=== PATIENT | female | born 1985 | race Caucasian/White ===

== ENCOUNTER 2016-07-18 19:57 | Observation (INO) | payer MEDICAID, OTHER ==
[~2016-07-18] VITALS: Ht 162.6 cm; Wt 77.0 kg
[~2016-07-18 19:57] MED LIST: IBUP800 PO; PERC5TAB12 PO; PNV-TAB PO; PREN0.01 PO; SENN1TAB11 PO
[2016-07-18 19:59] VITALS: BP 149/75; PULSE 108; RESP 20; TEMP 97.9; O2SAT 98
[2016-07-18] MEDS ORDERED: WELLTAB39 PO (20:26)
[2016-07-18] MEDS ORDERED: DIAZ5TAB PO (20:26)
[2016-07-18] MEDS ORDERED: SODIUM CHLOR 0.9% 1000 ML INJ 1,000 ML IV ONE (20:37)
[2016-07-18] MEDS ORDERED: SODIUM CHLORIDE 0.9% FLUSH 5 ML FLUSH IVF PRN (20:45)
[2016-07-18] MEDS ORDERED: LORazepam 2 MG/ML VIAL IV PUSH ONE (21:00)
[2016-07-18 21:11] LABS: AUTOMATED NEUTROPHIL # 5.8 TH/MM3 (1.8-7.7); BASOPHIL # 0.1 TH/MM3 (0-0.2); BASOPHIL % 0.7 % (0.0-2.0); EOSINOPHIL # 0.3 TH/MM3 (0-0.4); EOSINOPHIL % 3.3 % (0.0-4.0); HEMATOCRIT 40.7 % (35.0-46.0); HEMO FLAGS DIFF FINAL; LYMPH % 29.2 % (9.0-44.0); LYMPHOCYTE # 2.8 TH/MM3 (1.0-4.8); MEAN CELL VOLUME 83.1 FL (80.0-100.0); MEAN CORPUSCULAR HEMOGLOBIN 27.5 PG (27.0-34.0); MEAN CORPUSCULAR HGB CONC 33.1 % (32.0-36.0); NEUT % 60.8 % (16.0-70.0); PLATELET COUNT 248 TH/MM3 (150-450); RED BLOOD COUNT 4.89 MIL/MM3 (4.00-5.30); RED CELL DISTRIBUTION WIDTH 13.9 % (11.6-17.2); WHITE BLOOD COUNT 9.5 TH/MM3 (4.0-11.0)
--- NOTE | 2016-07-18 21:37 | RADRPT ---
EXAM DATE/TIME: 07/18/2016 21:21 [facility] COMPARISON: No previous studies available for comparison. INDICATIONS : Altered mental status. Possible seizure. RADIATION DOSE: 56.35 CTDIvol (mGy) MEDICAL HISTORY : Hypertension. SURGICAL HISTORY : Appendectomy. Tubal ligation. ENCOUNTER: Initial ACUITY: 1 day PAIN SCALE: 0/10 LOCATION: cranial TECHNIQUE: Multiple contiguous axial images were obtained of the head. Using automated exposure control and adj ustment of the mA and/or kV according to patient size, radiation dose was kept as low as reasonably a chievable to obtain optimal diagnostic quality images. FINDINGS: CEREBRUM: The ventricles are normal for age. No evidence of midline shift, mass lesion, hemorrhage or acute in farction. No extra-axial fluid collections are seen. POSTERIOR FOSSA: The cerebellum and brainstem are intact. The 4th ventricle is midline. The cerebellopontine angle i s unremarkable. EXTRACRANIAL: The visualized portion of the orbits is intact. SKULL: The calvaria is intact. No evidence of skull fracture. CONCLUSION: Normal examination. Leoncio Ramos MD on July 18, 2016 at 21:33 Board Certified Radiologist. This report was verified electronically.
[2016-07-18 21:49] VITALS: BP 142/68; PULSE 91; RESP 18; O2SAT 98
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
[2016-07-18 22:17] LABS: PHENOBARBITAL LESS THAN 2.1 MCG/ML (15.0-40.0)
[2016-07-18 22:27] LABS: ANION GAP 8 MEQ/L (5-15); BICARBONATE 26.3 MEQ/L (21.0-32.0); BLOOD UREA NITROGEN 8 MG/DL (7-18); CHLORIDE 109 MEQ/L (98-107); GLOMERULAR FILTRATION RATE 73 ML/MIN (>89); POTASSIUM 4.1 MEQ/L (3.5-5.1); SODIUM (NA) 143 MEQ/L (136-145)
[2016-07-18 22:32] LABS: AMPHETAMINE, URINE NEG (NEG); BARBITURATES, URINE NEG (NEG); COCAINE, URINE NEG (NEG)
[2016-07-18] MEDS ORDERED: FOSPHENYTOIN SODIUM 500 MG PE/10 ML VIAL IV ONE (23:00)
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
[2016-07-18] MEDS ORDERED: LORazepam 2 MG/ML VIAL IV PUSH PRN (23:15)
[2016-07-18] MEDS ORDERED: ONDANSETRON HCL 4 MG/2 ML VIAL IVP PRN (23:15)
[2016-07-18] MEDS ORDERED: SODIUM CHLORIDE 0.9% FLUSH 5 ML FLUSH FLUSH PRN (23:15)
[2016-07-18] MEDS ORDERED: BISACODYL 10 MG SUPP PR PRN (23:15)
[2016-07-18] MEDS: SODIUM CHLOR 0.9% 1000 ML INJ 1,000 ML IV SCH (23:41)
[2016-07-19 00:47] VITALS: BP 128/67; PULSE 87; RESP 19; TEMP 98.1; O2SAT 98
[2016-07-19] MEDS ORDERED: DIAZEPAM 5 MG TAB PO PRN (02:00)
[2016-07-19 03:16] VITALS: BP 110/54; PULSE 85; RESP 19; TEMP 98.2; O2SAT 97
[2016-07-19 04:43] LABS: AUTOMATED NEUTROPHIL # 4.8 TH/MM3 (1.8-7.7); BASOPHIL % 0.5 % (0.0-2.0); EOSINOPHIL # 0.3 TH/MM3 (0-0.4); EOSINOPHIL % 3.4 % (0.0-4.0); HEMATOCRIT 36.4 % (35.0-46.0); HEMO FLAGS DIFF FINAL; LYMPH % 30.9 % (9.0-44.0); LYMPHOCYTE # 2.5 TH/MM3 (1.0-4.8); MEAN CELL VOLUME 83.3 FL (80.0-100.0); MEAN CORPUSCULAR HEMOGLOBIN 27.7 PG (27.0-34.0); MEAN CORPUSCULAR HGB CONC 33.2 % (32.0-36.0); MONO % 6.1 % (0.0-8.0); NEUT % 59.1 % (16.0-70.0); PLATELET COUNT 188 TH/MM3 (150-450); RED BLOOD COUNT 4.37 MIL/MM3 (4.00-5.30); RED CELL DISTRIBUTION WIDTH 13.5 % (11.6-17.2); WHITE BLOOD COUNT 8.2 TH/MM3 (4.0-11.0)
[2016-07-19 05:36] LABS: ALT (GPT) 15 U/L (10-53); ANION GAP 7 MEQ/L (5-15); AST (GOT) 7 U/L (15-37); BICARBONATE 24.6 MEQ/L (21.0-32.0); BLOOD UREA NITROGEN 7 MG/DL (7-18); CHLORIDE 113 MEQ/L (98-107); GLOMERULAR FILTRATION RATE 80 ML/MIN (>89); POTASSIUM 4.3 MEQ/L (3.5-5.1); SODIUM (NA) 145 MEQ/L (136-145)
[2016-07-19 05:39] LABS: ALKALINE PHOSPHATASE 64 U/L (45-117); TOTAL BILIRUBIN ADULT 0.2 MG/DL (0.2-1.0)
[2016-07-19 07:18] VITALS: BP 123/69; PULSE 75; RESP 16; TEMP 98.4; O2SAT 98
[2016-07-19] MEDS: SODIUM CHLOR 0.9% 1000 ML INJ 1,000 ML IV SCH (08:58)
[2016-07-19] MEDS: ACETAMINOPHEN 325 MG TAB PO PRN ×2 (08:58→20:42)
[2016-07-19] MEDS: SODIUM CHLORIDE 0.9% FLUSH 5 ML FLUSH FLUSH SCH ×2 (08:59→20:43)
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
[2016-07-19 11:20] VITALS: BP 113/67; PULSE 88; RESP 17; TEMP 98.2; O2SAT 98
--- NOTE | 2016-07-19 11:36 | RADRPT ---
EXAM DATE/TIME: 07/19/2016 11:08 [facility] COMPARISON: CT BRAIN W/O CONTRAST, July 18, 2016, 21:21. INDICATIONS : Seizures. MEDICAL HISTORY : Seizures. SURGICAL HISTORY : Appendectomy. Tubal ligation. ENCOUNTER: Initial ACUITY: 1 day PAIN SCORE: 5/10 LOCATION: cranial TECHNIQUE: Multiplanar, multisequence MRI of the brain was performed without contrast. FINDINGS: CEREBRUM: The ventricles are normal. Hippocampi are symmetric. No evidence of midline shift, mass lesion, hemo rrhage or acute infarction. No extraaxial fluid collections are seen. The pituitary gland and supra sellar cistern are normal in configuration. WHITE MATTER: No significant signal abnormalities are seen in the white matter. POSTERIOR FOSSA: The cerebellum and brainstem are intact. The 4th ventricle is midline. The cerebellopontine angle is unremarkable. The cerebellar tonsils are normal in position. DIFFUSION IMAGING: No focal areas of restricted diffusion are seen. No evidence of acute infarction. EXTRACRANIAL: The visualized portions of the orbits and paranasal sinuses are unremarkable. CONCLUSION: Negative brain MRI without contrast. No abnormality is identified to explain the patient's seizures. Adolph Johnson MD on July 19, 2016 at 11:32 Board Certified Radiologist. This report was verified electronically.
[2016-07-19] MEDS: PHENYTOIN SODIUM 100 MG CAP PO SCH ×2 (12:49→20:41)
[2016-07-19] MEDS: levETIRAcetam 500 MG TAB PO SCH ×2 (12:49→20:41)
--- NOTE | 2016-07-19 13:07 | MG ---
cc: JANET MCKEON M.D. Lab No: [id number] Date: 07/19/2016 Age: Sex: F Race: TECHNIQUE: 17 channel EEG. DESCRIPTION: The background rhythm reveals a symmetrical alpha rhythm. Frequency is 8-9 Hz. There is fairly prominent beta activity related to most likely medication effect. Occasional muscle artifact is seen. There are no lateralizing features seen. There are no epileptiform discharges. Photic results in a normal driving response. INTERPRETATION: This is a normal EEG. MD PINEDA Otero/JOSE /12:46 PM /1:03 PM
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
[2016-07-19 15:53] VITALS: BP 120/64; PULSE 81; RESP 16; TEMP 98.1; O2SAT 98
[2016-07-19 21:21] VITALS: BP 128/75; PULSE 81; O2SAT 98
[2016-07-20 00:29] VITALS: BP 120/72; PULSE 76; O2SAT 96
[2016-07-20 04:51] VITALS: BP 121/65; PULSE 87; O2SAT 96
[2016-07-20] MEDS: PHENYTOIN SODIUM 100 MG CAP PO SCH ×2 (06:21→15:31)
[2016-07-20 09:06] VITALS: BP 120/77; PULSE 72; RESP 17; TEMP 98.6; O2SAT 99
[2016-07-20] MEDS: levETIRAcetam 500 MG TAB PO SCH (10:20)
[2016-07-20] MEDS: SODIUM CHLORIDE 0.9% FLUSH 5 ML FLUSH FLUSH SCH (10:21)
[2016-07-20] MEDS ORDERED: FOSPHENYTOIN SODIUM 100 MG PE/2 ML VIAL IV ONE (12:00)
[2016-07-20] MEDS ORDERED: DILA100C PO (12:03)
[2016-07-20] MEDS ORDERED: LEVE500 PO (12:03)
[2016-07-20 12:05] VITALS: BP 133/77; PULSE 78; RESP 18; TEMP 98.5; O2SAT 96
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
[2016-07-20 16:15] VITALS: BP 152/76; PULSE 71; RESP 18; O2SAT 96
== END 2016-07-20 16:41 | disposition home or self-care (01) ==
LOC: NEPE 19:57 → NEDA 22:57 → NEPGCP 07-19 → NEPHCDU 07-19 07:51
PROVIDERS: ADMIT Hospitalist; ATTEND Hospitalist
DX: G40.909 Epilepsy, unspecified, not intractable, without status epilepticus (principal); F43.10 Post-traumatic stress disorder, unspecified; R01.1 Cardiac murmur, unspecified; F17.210 Nicotine dependence, cigarettes, uncomplicated; Z91.14 Patient's other noncompliance with medication regimen; Z87.828 Personal history of other (healed) physical injury and trauma
CPT/HCPCS: 70450; 70551; 80048; 80053; 80164; 80184; 80185; 80186; 80307; 84703; 85025; 95819; 96361; 96374; 97110; 97116; 97161; 99285; G0378; J2060; J7030; Q2009; 80320

== ENCOUNTER 2016-07-25 16:07 | Inpatient (IN) | payer MEDICAID ==
[~2016-07-25] VITALS: Ht 165.1 cm; Wt 85.6 kg
[~2016-07-25 16:07] MED LIST changes: +DIAZ5TAB PO; +DILA100C PO; -IBUP800 PO; +LEVE500 PO; -PERC5TAB12 PO; -PNV-TAB PO; -PREN0.01 PO; -SENN1TAB11 PO
[2016-07-25 16:10] VITALS: BP 191/92; PULSE 114; RESP 20; TEMP 98.1; O2SAT 100
[2016-07-25] MEDS ORDERED: LORazepam 2 MG/ML VIAL IM ONE (16:30)
[2016-07-25] MEDS ORDERED: CLON.5 PO (16:31)
--- NOTE | 2016-07-25 16:37 | PD ---
HPI Chief Complaint: Seizure Time Seen by Provider: 16:37 Travel History International Travel<30 days: No Contact w/Intl Traveler<30days: No Traveled to known affect area: No History of Present Illness HPI 30-year-old female is here with her friend with history of seizures. Patient had a seizure on her way from the triage to the room. However currently she is awake and answering questions although sleepy and with little bit of slurred speech. She says she has had these seizures multiple times. She has been to [facility] as well as [facility]. She had an EEG done in this hospital which was negative. She is on Dilantin, Keppra, Klonopin and diazepam. She says she's been taking them like she supposed to. However she doesn't understand why she keeps getting seizures. Vital signs were stable otherwise in the room. Patient was tachycardic and hypertensive when she first arrived. Patient is a smoker but denies alcohol or drugs. [facility] Past Medical History Narrative Medical List of her past medical, surgical, family and social history is reviewed from the nursing note. Hx Anticoagulant Therapy: No Blood Disorders: No Anxiety: Yes (PTSD - DOMESTIC ABUSE) Heart Rhythm Problems: Yes Cancer: No Cardiovascular Problems: No High Cholesterol: No Chemotherapy: No Chest Pain: Yes Congestive Heart Failure: No Cerebrovascular Accident: No Diabetes: No Diminished Hearing: No Endocrine: No Genitourinary: No Hypertension: Yes (GESTATIONAL) Neurologic: Yes (seizures) Psychiatric: Yes Reproductive: No Respiratory: No Tetanus Vaccination: < 5 Years ?: Not LMP: 07/19/16 : 12 Para: 4 Miscarriage: 8 Dilation and Curettage (D&C): Yes (1) Tubal Ligation: Yes Past Surgical History Appendectomy: Yes Hysterectomy: No Other Surgery: Yes (appendix, tubal ligation) Social History Alcohol Use: No Tobacco Use: Yes (1/2PPD) Substance Use: No Allergies-Medications (Allergen,Severity, Reaction): Coded Allergies: Bactrim (Verified Allergy, Intermediate, hives, 07/25/16) Comments List of allergies reviewed from the nursing note. Reported Meds & Prescriptions Reported Meds & Active Scripts Active Dilantin (Phenytoin Extended) 100 Mg Cap 100 Mg PO Q8HR Keppra (Levetiracetam) 500 Mg Tab 500 Mg PO Q12HR Reported Klonopin (Clonazepam) 0.5 Mg Tab 0.5 Mg PO BID Diazepam 5 Mg Tab 5 Mg PO TID PRN Narrative Medication List of her home medications reviewed from the nursing note. Review of Systems Except as stated in HPI: all other systems reviewed are Neg Physical Exam Narrative GENERAL: Lethargic, slurred speech, obese, no obvious distress SKIN: Warm and dry. HEAD: Atraumatic. Normocephalic. EYES: Pupils equal and round. No scleral icterus. No injection or drainage. ENT: No nasal bleeding or discharge. Mucous membranes pink and moist. NECK: Trachea midline. No JVD. CARDIOVASCULAR: Regular rate and rhythm. No murmur appreciated. RESPIRATORY: No accessory muscle use. Clear to auscultation. Breath sounds equal bilaterally. GASTROINTESTINAL: Abdomen soft, non-tender, nondistended. Hepatic and splenic margins not palpable. MUSCULOSKELETAL: No obvious deformities. No clubbing. No cyanosis. No edema. NEUROLOGICAL: Lethargic. No obvious cranial nerve deficits. Motor grossly within normal limits. Slurred speech. PSYCHIATRIC: Appropriate mood and affect; insight and judgment normal. Data Data Last Documented VS Vital Signs Date Time Temp Pulse Resp B/P Pulse Ox O2 Delivery O2 Flow Rate FiO2 07/25/16 16:10 98.1 114 20 191/92 100 Room Air Orders Lorazepam Inj (Ativan Inj) (07/25/16 16:30) Complete Blood Count With Diff (07/25/16 17:40) Basic Metabolic Panel (Bmp) (07/25/16 17:40) Magnesium (Mg) (07/25/16 17:40) Sodium Chlor 0.9% 1000 Ml Inj (Ns 1000 M (07/25/16 17:45) Creatine Kinase (Cpk) (07/25/16 17:40) Phenytoin (Dilantin) (07/25/16 17:50) Acetaminophen (Tylenol) (07/25/16 18:15) Admit Order (Ed Use Only) (07/25/16 19:46) Phenytoin Inj (Dilantin Inj) (07/25/16 20:00) Labs Laboratory Tests Test 07/25/16 17:50 White Blood Count 13.9 TH/MM3 Red Blood Count 5.13 MIL/MM3 Hemoglobin 14.1 GM/DL Hematocrit 42.7 % Mean Corpuscular Volume 83.2 FL Mean Corpuscular Hemoglobin 27.4 PG Mean Corpuscular Hemoglobin 33.0 % Concent Red Cell Distribution Width 13.8 % Platelet Count 326 TH/MM3 Mean Platelet Volume 9.3 FL Neutrophils (%) (Auto) 57.4 % Lymphocytes (%) (Auto) 34.0 % Monocytes (%) (Auto) 5.3 % Eosinophils (%) (Auto) 2.8 % Basophils (%) (Auto) 0.5 % Neutrophils # (Auto) 8.0 TH/MM3 Lymphocytes # (Auto) 4.7 TH/MM3 Monocytes # (Auto) 0.7 TH/MM3 Eosinophils # (Auto) 0.4 TH/MM3 Basophils # (Auto) 0.1 TH/MM3 CBC Comment DIFF FINAL Differential Comment Sodium Level 140 MEQ/L Potassium Level 3.4 MEQ/L Chloride Level 103 MEQ/L Carbon Dioxide Level 25.8 MEQ/L Anion Gap 11 MEQ/L Blood Urea Nitrogen 8 MG/DL Creatinine 0.92 MG/DL Estimat Glomerular Filtration 72 ML/MIN Rate Random Glucose 95 MG/DL Calcium Level 8.7 MG/DL Magnesium Level 2.1 MG/DL Total Creatine Kinase 134 U/L Phenytoin (Dilantin) Level 4.0 MCG/ML MDM Medical Decision Making Medical Screen Exam Complete: Yes Emergency Medical Condition: Yes Medical Record Reviewed: Yes Differential Diagnosis Seizures, electrolyte abnormality Narrative Course 7:30 PM blood test results are back and within normal limits. However, preferred to keep this patient at least for observation and repeat another EEG. I've explained this to the patient and she is happy with the plan. Her Dilantin level was low and I have loaded her with a gram of Dilantin IV. I spoke with the hospitalist who has accepted the patient. Procedures EKG Prior to Arrival: No Diagnosis Primary Impression: Seizure Admitting Information Admitting Physician Requests: Observation Scripts Phenytoin Extended (Dilantin)100 Mg Azo456 Mg PO Q12HR #60 CAP Prov:Betty Valencia MD 07/28/16 Levetiracetam (Keppra)500 Mg Tab1,000 Mg PO Q12HR #60 TAB Prov:Betty Valencia MD 07/28/16 Rudi Arvizu MD Jul 25, 2016 16:37
[2016-07-25] MEDS ORDERED: SODIUM CHLOR 0.9% 1000 ML INJ 1,000 ML IV ONE (17:45)
[2016-07-25 18:13] LABS: BASOPHIL # 0.1 TH/MM3 (0-0.2); BASOPHIL % 0.5 % (0.0-2.0); EOSINOPHIL # 0.4 TH/MM3 (0-0.4); EOSINOPHIL % 2.8 % (0.0-4.0); HEMATOCRIT 42.7 % (35.0-46.0); HEMO FLAGS DIFF FINAL; LYMPHOCYTE # 4.7 TH/MM3 (1.0-4.8); MEAN CELL VOLUME 83.2 FL (80.0-100.0); MEAN CORPUSCULAR HEMOGLOBIN 27.4 PG (27.0-34.0); MONO % 5.3 % (0.0-8.0); NEUT % 57.4 % (16.0-70.0); PLATELET COUNT 326 TH/MM3 (150-450); RED BLOOD COUNT 5.13 MIL/MM3 (4.00-5.30); RED CELL DISTRIBUTION WIDTH 13.8 % (11.6-17.2); WHITE BLOOD COUNT 13.9 TH/MM3 (4.0-11.0)
[2016-07-25] MEDS ORDERED: ACETAMINOPHEN 325 MG TAB PO ONE (18:15)
[2016-07-25 19:02] LABS: BICARBONATE 25.8 MEQ/L (21.0-32.0); MAGNESIUM 2.1 MG/DL (1.5-2.5)
[2016-07-25 19:07] LABS: POTASSIUM 3.4 MEQ/L (3.5-5.1)
[2016-07-25 19:50] VITALS: BP 107/59; PULSE 87; RESP 18; TEMP 98.3; O2SAT 100
[2016-07-25] MEDS ORDERED: DIAZEPAM 5 MG TAB PO PRN (20:00)
[2016-07-25] MEDS ORDERED: PHENYTOIN INJ 1,000 MG in SODIUM CHLORIDE 0.9% INJ 100 ML IV ONE (20:00)
[2016-07-25] MEDS ORDERED: ONDANSETRON HCL 4 MG/2 ML VIAL IVP PRN (20:00)
[2016-07-25] MEDS ORDERED: levETIRAcetam 1000 MG INJ 100 ML IV ONE (20:00)
[2016-07-25] MEDS ORDERED: BISACODYL 10 MG SUPP PR PRN (20:00)
[2016-07-25] MEDS ORDERED: SODIUM CHLORIDE 0.9% FLUSH 5 ML FLUSH FLUSH PRN (20:00)
[2016-07-25] MEDS ORDERED: ACETAMINOPHEN 325 MG TAB PO PRN (20:00)
--- NOTE | 2016-07-25 20:00 | HHI.HP ---
[facility] Service [facility] Primary Care Physician Unknown Admission Diagnosis seizure Diagnoses: (1) Seizure Diagnosis: Principal (2) Non-compliance Diagnosis: Principal (3) Anxiety Diagnosis: Principal (4) Tobacco abuse Diagnosis: Principal Travel History International Travel<30 Days: No Contact w/Intl Traveler <30 Da: No Traveled to Known Affected Are: No History of Present Illness This is a 30-year-old female with a PMH of Anxiety, PTSD, Seizure Disorder, Non- compliance and Tobacco Abuse who was brought to the ER by sister secondary to witnessed seizure w/ post-ictal period. 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 Oro w/ Neurology, resumed on Dilantin 100mg po q8h and Keppra 500mg q12h, EEG 07/19/[address] Head 07/18/16 negative and MRI Brain 07/19/16 normal. D/c'd 07/20/16, reportedly compliant w/ medications, however Dilantin level subtherapeutic at 4.0. No recurrent seizure activity while in ER, however pt noted to be somnolent w/ slurred speech indicative of post-ictal state. On arrival, BP 191/ 92, HR 114, O2 sat 100% on RA, Afebrile. Currently BP 107/59, HR 87. WBC 13.9. K+ 3.4. S/p Dilantin 1gm IV x1 in ER. Review of Systems ROS: 14 point review of systems otherwise negative. Past Family Social History Past Medical History PMH: Anxiety, PTSD, Seizure Disorder, Non-compliance and Tobacco Abuse Past Surgical History PAST SURGICAL HISTORY: Appendectomy, Tubal Ligation Allergies: Coded Allergies: Bactrim (Verified Allergy, Intermediate, hives, 07/25/16) Family History PAST FAMILY HISTORY: Reviewed. No h/o DM or CAD Social History PAST SOCIAL HISTORY: Negative for alcohol or drug use. Smokes 1/2ppd. Physical Exam Vital Signs Vital Signs Date Time Temp Pulse Resp B/P Pulse Ox O2 Delivery O2 Flow Rate FiO2 07/25/16 19:50 98.3 87 18 107/59 100 Room Air 07/25/16 16:10 98.1 114 20 191/92 100 Room Air Physical Exam PE: GENERAL: Young black female in no acute distress, somewhat somnolent but answering few questions. HEENT: PERRLA, EOMI. No scleral icterus or conjunctival pallor. No lid lag or facial droop. CARDIOVASCULAR: Regular rate and rhythm. No obvious murmurs to auscultation. No chest tenderness to palpation. RESPIRATORY: No obvious rhonchi or wheezing. Clear to auscultation. Breath sounds equal bilaterally. GASTROINTESTINAL: Abdomen soft, non-tender, nondistended. BS normal. MUSCULOSKELETAL: Extremities without clubbing, cyanosis, or edema. No obvious deformities. NEUROLOGICAL: Somnolent but answers questions. No focal neurologic deficits. Moving both upper and lower extremities spontaneously. Laboratory Laboratory Tests Test 07/25/16 17:50 White Blood Count 13.9 Red Blood Count 5.13 Hemoglobin 14.1 Hematocrit 42.7 Mean Corpuscular Volume 83.2 Mean Corpuscular Hemoglobin 27.4 Mean Corpuscular Hemoglobin 33.0 Concent Red Cell Distribution Width 13.8 Platelet Count 326 Mean Platelet Volume 9.3 Neutrophils (%) (Auto) 57.4 Lymphocytes (%) (Auto) 34.0 Monocytes (%) (Auto) 5.3 Eosinophils (%) (Auto) 2.8 Basophils (%) (Auto) 0.5 Neutrophils # (Auto) 8.0 Lymphocytes # (Auto) 4.7 Monocytes # (Auto) 0.7 Eosinophils # (Auto) 0.4 Basophils # (Auto) 0.1 CBC Comment DIFF FINAL Differential Comment Sodium Level 140 Potassium Level 3.4 Chloride Level 103 Carbon Dioxide Level 25.8 Anion Gap 11 Blood Urea Nitrogen 8 Creatinine 0.92 Estimat Glomerular Filtration 72 Rate Random Glucose 95 Calcium Level 8.7 Magnesium Level 2.1 Total Creatine Kinase 134 Phenytoin (Dilantin) Level 4.0 Result Diagram: 07/25/16174907/25/161749 Assessment and Plan Problem List: (1) Seizure ICD Code: R56.9 Status: Acute (2) Non-compliance ICD Code: Z91.19 Status: Chronic (3) Anxiety ICD Code: F41.9 Status: Chronic (4) Tobacco abuse ICD Code: Z72.0 Status: Chronic Assessment and Plan A/P: 1. Seizure: w/ breakthrough seizure, suspect non-compliance w/ medications. Recent admit 07/18/16 for same, s/p eval by Dr. Oro, resumed on Dilantin 100mg q8h and added Keppra 500mg q12h. EEG 07/19/[address] Head 07/18/16 w/ no acute findings, MRI Brain 07/19/16 negative, images reviewed by me. Dilantin level subtherapeutic, s/p Dilantin 1gm IV in ER, will resume home Dilantin and Keppra, repeat levels in am. Ativan prn, Seizure Precautions. Will re-consult Dr. Oro for further recommendations. 2. Non-compliance: h/o non-compliance w/ Dilantin in the past due to financial reasons, reports compliance w/ meds, however as above Dilantin subtherapeutic. 3. Anxiety: h/o severe anxiety/PTSD currently living in [facility]. Resume home Klonopin/Valium 4. Tobacco Abuse: Pt counselled. NicoDerm prn if needed. 5. DVT Prophylaxis: SCD/Teds. 6. Social work for d/c planning as needed. 7. Case discussed w/ ER physician at length. Sheron Miranda MD Jul 25, 2016 20:00
[2016-07-25] MEDS: SODIUM CHLOR 0.9% 1000 ML INJ 1,000 ML IV SCH (21:22)
[2016-07-25] MEDS: SODIUM CHLORIDE 0.9% FLUSH 5 ML FLUSH FLUSH SCH (21:22)
[2016-07-25] MEDS: clonazePAM 0.5 MG TAB PO SCH (21:22)
[2016-07-25 21:23] VITALS: BP 107/59; PULSE 98; RESP 18; O2SAT 100
[2016-07-25 21:37] VITALS: BP 123/74
[2016-07-25] MEDS: LORazepam 2 MG/ML VIAL IV PUSH PRN ×2 (22:12→22:35)
--- NOTE | 2016-07-25 22:46 | HHI.FPPN ---
Addendum to progress note ADDENDUM Reason for addendum: Additonal documentation Additional information PRATIMA Residents paged for pratima regarding patient with seizure-like activity. Pt admitted for seizures and then became non-responsive and had oxygen desaturation. They had given patient 1mg IV ativan. Upon entering the room, pt was laying in bed, not answering questions. Sternal rub produced minimal movement. While in the room, pt exhibited another seizure episode, which the nurse stated was similar to earlier. Pt constricted arms and began shaking and coughing. Patient's head was turned to one side and another 1mg IV ativan was given. Pt's seizure activity resolved after the ativan was given. Vitals: BP stable, HR 80s, adequate oxygen saturation Gen: Lying in bed, not responding to questions CV: RRR w/o murmur Lungs: CTAB GI: soft, nttp Ext: pulses intact, no edema A/P 30 y/o female with history of seizures presenting with breakthrough seizures. - Given 1mg IV ativan - Continue Keppra and Dilantin - If uncontrolled seizures, call neuro - Neurology has been consulted - Covering physician for pt was called and case was discussed with her and she took over care sdw Dr. Holt-Margarito Krueger MD R1 Jul 25, 2016 22:46
--- NOTE | 2016-07-25 23:15 | HHI.PR ---
Addendum to Inpatient Note Addendum Reason: Additional Documentation Additional Information Ms. Turner is a 30 y/o with about a one-year history of seizures and medical noncompliance who was brought into the emergency department by her sister after a witnessed seizure at home. 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 Oro w/ Neurology, resumed on Dilantin 100mg po q8h and Keppra 500mg q12h, EEG 07/19/[address] Head 07/18/16 negative and MRI Brain 07/19/16 normal. D/c'd 07/20/16, reportedly compliant w/ medications, however Dilantin level subtherapeutic at 4.0. [facility]ICAT was called while the patient was in the CDU because of seizure activity : I received report from the residents who attended the [facility], the charge nurse, and the bedside registered nurse. Reportedly, during the seizure all of her muscles were tight and she was shaking. She was unresponsive to sternal rub , hypoxic with oxygen saturation in the low 80's, and was administered Ativan 1 mg IV. The seizure resolved and she went into a postictal state with stabilization of vitals and oxygen sat of 95% on 4liters oxygen NC. Shortly afterward, she had further seizure-like activity as described above. This episode also resolved with Ativan 1 mg IV. No incontinence during either episode. Did not bite tongue or cheek. I saw the patient in the CDU afterwards. Vital signs were stable and her oxygen saturation was 95-96% on 4 L nasal cannula. Neurological examination reveals some mild photosensitivity with penlight exam. Pupils are equal but dilated, responsive to light. Muscle strength is generally weak 5-/5 but equal. No tongue deviation noted, no oral lesions noted. Speech is slightly slurred. She tells me it is July 2016, [place] is president. Cannot tell me the exact date or day. She becomes more alert and talkative throughout the duration of my visit. She tells me Latasha is president before the visit is over. The patient has received both Dilantin and Keppra loading doses. She tells me she felt her normal aura prior to seizure activity and said she could hear muffled sounds that were quite loud. She says she remembers the nurse asking her something and then the next thing she remembers is talking to me. She also tells me she feels like her aura is returning before I leave the room. I placed a call to Dr. Celis the neurologists and discussed the above with him: he recommends admission to ICU; in regards to seizure management, he recommended to continue to give Ativan PRN for seizure activity since she'd already been loaded with Dilantin and Keppra. He wants her to be admitted to ICU in the event that continued Ativan administration leads to an inability to protect airway or suppressed respirations/hypoxia. Also discussed the above with supervising physician Dr. Miranda. She is in agreement with plan. . Montserrat Arriaga Jul 25, 2016 23:15
[2016-07-26] VITALS (10 sets, daily range): BP systolic 94–141; BP diastolic 52–88; PULSE 73–98; RESP 16–20; TEMP 97.6–98.2; O2SAT 94–99
[2016-07-26] MEDS ORDERED: CHLORHEXIDINE GLUCONATE 2 % 1 PACK (2 CLOTHS)(extra cloths) TOP PRN (01:45)
[2016-07-26 03:46] LABS: AUTOMATED NEUTROPHIL # 4.9 TH/MM3 (1.8-7.7); BASOPHIL # 0.1 TH/MM3 (0-0.2); BASOPHIL % 0.6 % (0.0-2.0); EOSINOPHIL # 0.3 TH/MM3 (0-0.4); EOSINOPHIL % 3.2 % (0.0-4.0); HEMATOCRIT 35.9 % (35.0-46.0); HEMO FLAGS DIFF FINAL; LYMPH % 35.2 % (9.0-44.0); LYMPHOCYTE # 3.1 TH/MM3 (1.0-4.8); MEAN CELL VOLUME 82.7 FL (80.0-100.0); MEAN CORPUSCULAR HEMOGLOBIN 27.5 PG (27.0-34.0); MEAN CORPUSCULAR HGB CONC 33.2 % (32.0-36.0); PLATELET COUNT 230 TH/MM3 (150-450); RED BLOOD COUNT 4.33 MIL/MM3 (4.00-5.30); RED CELL DISTRIBUTION WIDTH 13.2 % (11.6-17.2); WHITE BLOOD COUNT 8.7 TH/MM3 (4.0-11.0)
[2016-07-26] MEDS: CHLORHEXIDINE GLUCONATE 2 % 1 PACK (2 CLOTHS)(taper/protocol) TOP SCH (04:00)
[2016-07-26 04:03] LABS: ANION GAP 7 MEQ/L (5-15); AST (GOT) 8 U/L (15-37); BICARBONATE 25.5 MEQ/L (21.0-32.0); BLOOD UREA NITROGEN 7 MG/DL (7-18); CHLORIDE 110 MEQ/L (98-107); GLOMERULAR FILTRATION RATE 107 ML/MIN (>89); POTASSIUM 3.7 MEQ/L (3.5-5.1); SODIUM (NA) 142 MEQ/L (136-145)
[2016-07-26 04:11] LABS: ALKALINE PHOSPHATASE 72 U/L (45-117); ALT (GPT) 14 U/L (10-53); TOTAL BILIRUBIN ADULT 0.2 MG/DL (0.2-1.0)
[2016-07-26] MEDS: SODIUM CHLOR 0.9% 1000 ML INJ 1,000 ML IV SCH ×2 (05:46→08:48)
[2016-07-26] MEDS ORDERED: PHENYTOIN SODIUM 100 MG CAP PO SCH (06:00)
[2016-07-26] MEDS: clonazePAM 0.5 MG TAB PO SCH ×2 (08:48→20:57)
[2016-07-26] MEDS: SODIUM CHLORIDE 0.9% FLUSH 5 ML FLUSH FLUSH SCH ×2 (08:48→20:58)
[2016-07-26] MEDS ORDERED: levETIRAcetam 500 MG TAB PO SCH (09:00)
--- NOTE | 2016-07-26 09:23 | HHI.PR ---
Subjective Remarks Patient complaints of shoulder pain in her left shoulder. She is also having an episode of seizure, she is nor talking and al her muscle are tense, he keeps her eyes closed and she is nor answering questions. She is is however able to take PO , did not lose bowel /bladder control. Vitals signs are stable. Labs are stable. Received lorazepam and is sleepy. Discussed with Dr Celis neurology, will repeat EEG and also will order X ray left shoulder. Objective Vitals Vital Signs Date Time Temp Pulse Resp B/P Pulse Ox O2 Delivery O2 Flow Rate FiO2 07/26/16 06:00 75 07/26/16 04:00 76 07/26/16 04:00 98.2 75 16 94/52 98 07/26/16 02:00 83 07/26/16 00:36 90 07/26/16 00:09 97.8 98 18 124/58 99 07/25/16 21:37 86 20 123/74 100 07/25/16 21:23 98 18 107/59 100 Room Air 07/25/16 19:50 98.3 87 18 107/59 100 Room Air 07/25/16 16:10 98.1 114 20 191/92 100 Room Air I/O 07/25/16 07/25/16 07/25/16 07/26/16 07/26/16 07/26/16 07:00 15:00 23:00 07:00 15:00 23:00 Intake Total 240 ml Output Total 0 ml Balance 240 ml Intake Oral 240 ml IV Total 0 ml Output Urine Total 0 ml Stool Total 0 ml Result Diagram: 07/26/16 0306 07/26/16 0306 Objective Remarks GENERAL: Young female, 30 yo female, somnolent, doesn't follow commands. HEENT: PERRLA, EOMI. No scleral icterus or conjunctival pallor. No lid lag or facial droop. CARDIOVASCULAR: Regular rate and rhythm. No obvious murmurs to auscultation. No chest tenderness to palpation. RESPIRATORY: No obvious rhonchi or wheezing. Clear to auscultation. Breath sounds equal bilaterally. GASTROINTESTINAL: Abdomen soft, non-tender, nondistended. BS normal. MUSCULOSKELETAL: Extremities without clubbing, cyanosis, or edema. No obvious deformities. NEUROLOGICAL: Somnolent. No focal neurologic deficits. Moving both upper and lower extremities spontaneously. A/P Problem List: (1) Seizure ICD Code: R56.9 Status: Acute (2) Non-compliance ICD Code: Z91.19 Status: Chronic (3) Anxiety ICD Code: F41.9 Status: Chronic (4) Tobacco abuse ICD Code: Z72.0 Status: Chronic Assessment and Plan Seizure: w/ breakthrough seizure, suspect non-compliance w/ medications/ vs pseudoseizures. Recent admit 07/18/16 for same, s/p eval by Dr. Oro, resumed on Dilantin 100mg q8h and added Keppra 500mg q12h. EEG 07/19/[address] Head 07/18/16 w/ no acute findings, MRI Brain 07/19/16 negative, images reviewed by me. Dilantin level subtherapeutic on admission repeat level is normal s/p Dilantin 1gm IV in ER, continue home Dilantin and Keppra, monitor levels. Ativan prn. Seizure Precautions. Seen by neurology appreciate recommendations. Repeat EEG today Left shoulder pain. Xray reviewed, shows left shoulder subluxation. Consult ortho. Non-compliance: h/o non-compliance w/ Dilantin in the past due to financial reasons, reports compliance w/ meds, however as above Dilantin subtherapeutic. Anxiety: h/o severe anxiety/PTSD currently living in [facility]. Resume home Klonopin/Valium Tobacco Abuse: Pt counselled. NicoDerm prn if needed. DVT Prophylaxis: SCD/Teds. CM for d/c planning as needed. Discussed with the patient, nurse, Dr Celis neurology Betty Valencia MD Jul 26, 2016 09:23
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
[2016-07-26] MEDS: LORazepam 2 MG/ML VIAL IV PUSH PRN (10:05)
--- NOTE | 2016-07-26 11:36 | RADRPT ---
EXAM DATE/TIME: 07/26/2016 10:13 [place] COMPARISON: No previous studies available for comparison. INDICATIONS : Left shoulder pain after seizure. MEDICAL HISTORY : None. SURGICAL HISTORY : None. ENCOUNTER: Initial ACUITY: 1 day PAIN SCORE: 10/10 LOCATION: Left shoulder FINDINGS: On the frontal view, there appears to be anterior dislocation. On the transscapular Y. view, the post erior aspect of the humeral head overlaps the glenoid suggesting an anterior subluxation. The acromio clavicular joints aligned.CONCLUSION: Suspected anterior subluxation of the humeral head in relation to the glenoid Adolph Perry MD on July 26, 2016 at 11:30 Board Certified Radiologist. This report was verified electronically.
[2016-07-26] MEDS ORDERED: levETIRAcetam 500 MG TAB PO ONE (12:00)
[2016-07-26] MEDS ORDERED: PHENYTOIN SODIUM 100 MG CAP PO ONE (12:00)
--- NOTE | 2016-07-26 18:03 | PD.CONS ---
cc: Sunil Carter MD Left Shoulder Instability (Kailee De León) [facility] Service Orthopedic Surgeons Consult Requested By Medical Staff Reason for Consult Left Shoulder Instability Primary Care Physician Unknown Admission Diagnosis seizure Diagnoses: (1) Instability of left shoulder joint Diagnosis: Principal (2) Seizure (3) Non-compliance (4) Anxiety (5) Tobacco abuse (Kailee De León) Chief Complaint: Left shoulder pain (Sunil Carter MD) History of Present Illness 30 year old female presents to [facility] for control of seizure disorder. She admits to left shoulder pain this AM after recent seizure activity, orthopaedic consultation was requested at this time. She states her left shoulder pain worsened after recent seizure activity. She states she does not remember her seizure events. She does admit to several months of left shoulder pain and instability prior to this event. No history of musculoskeletal injuries or any locating signs of injury. (Kailee De León) History of Present Illness The patient states she is been treated for shoulder pain in the past related to lifting at work. She did see an orthopedist previously. She is unsure as to whether she had any previous treatment. She has had intermittent instability. ( Sunil Carter MD) Review of Systems see medical records (Kailee De León) Past Family Social History Past Medical History PMH: Anxiety, PTSD, Seizure Disorder, Non-compliance and Tobacco Abuse Past Surgical History PAST SURGICAL HISTORY: Appendectomy, Tubal Ligation (Kailee De León) Allergies: Coded Allergies: Bactrim (Verified Allergy, Intermediate, hives, 07/25/16) Active Ordered Medications Current Medications Medications (Trade) Dose Ordered Sig/Bandar Route Start Time Stop Time Status Last Admin (Ativan Inj) 1 mg Q5M PRN IV PUSH 07/25/16 20:00 07/26/16 10:05 Diazepam 5 mg 5 mg Q8H PRN PO 07/25/16 20:00 (NS 1000 ml Inj) 1,000 ml @ 100 mls/hr Q10H IV 07/25/16 20:00 07/26/16 08:48 (NS Flush) 2 ml UNSCH PRN FLUSH 07/25/16 20:00 (NS Flush) 2 ml BID FLUSH 07/25/16 21:00 3/12/17 08:48 (Zofran Inj) 4 mg Q6H PRN IVP 07/25/16 20:00 (Dulcolax Supp) 10 mg DAILY PRN CO 07/25/16 20:00 (Tylenol) 650 mg Q6H PRN PO 07/25/16 20:00 (KlonoPIN) 0.5 mg BID PO 07/25/16 21:00 07/26/16 08:48 Miscellaneous Information Patient in critical care unit? Ass... Q361D XX 07/26/16 01:45 07/26/16 01:45 (Chlorhexidine 2% Cloth) 3 pack DAILY@04 TOP 07/26/16 04:00 07/30/16 04:01 07/26/16 04:00 (Chlorhexidine 2% Cloth) 3 pack UNSCH PRN TOP 07/26/16 01:45 07/31/16 01:30 (Keppra) 1,000 mg Q12HR PO 07/26/16 21:00 (Dilantin) 300 mg Q12HR PO 07/26/16 21:00 Reported Meds & Active Scripts Active Dilantin (Phenytoin Extended) 100 Mg Cap 100 Mg PO Q8HR Keppra (Levetiracetam) 500 Mg Tab 500 Mg PO Q12HR Reported Klonopin (Clonazepam) 0.5 Mg Tab 0.5 Mg PO BID Diazepam 5 Mg Tab 5 Mg PO TID PRN Family History PAST FAMILY HISTORY: Reviewed. No h/o DM or CAD Social History PAST SOCIAL HISTORY: Negative for alcohol or drug use. Smokes 1/2ppd. ( Kailee De León) Physical Exam Vital Signs Vital Signs Date Time Temp Pulse Resp B/P Pulse Ox O2 Delivery O2 Flow Rate FiO2 07/26/16 06:00 75 07/26/16 04:00 76 07/26/16 04:00 98.2 75 16 94/52 98 07/26/16 02:00 83 07/26/16 00:36 90 07/26/16 00:09 97.8 98 18 124/58 99 07/25/16 21:37 86 20 123/74 100 07/25/16 21:23 98 18 107/59 100 Room Air 07/25/16 19:50 98.3 87 18 107/59 100 Room Air Physical Exam LUE: She has full ROM of left shoulder, crepitus is noted with flexion, pain is elicited with strength testing of biceps, positive sulcus sign, negative impingement, no overlying skin changes, minimal swelling noted Laboratory Laboratory Tests Test 07/25/16 07/26/16 07/26/16 17:50 01:24 03:06 White Blood Count 13.9 8.7 Red Blood Count 5.13 4.33 Hemoglobin 14.1 11.9 Hematocrit 42.7 35.9 Mean Corpuscular Volume 83.2 82.7 Mean Corpuscular Hemoglobin 27.4 27.5 Mean Corpuscular Hemoglobin 33.0 33.2 Concent Red Cell Distribution Width 13.8 13.2 Platelet Count 326 230 Mean Platelet Volume 9.3 8.8 Neutrophils (%) (Auto) 57.4 56.0 Lymphocytes (%) (Auto) 34.0 35.2 Monocytes (%) (Auto) 5.3 5.0 Eosinophils (%) (Auto) 2.8 3.2 Basophils (%) (Auto) 0.5 0.6 Neutrophils # (Auto) 8.0 4.9 Lymphocytes # (Auto) 4.7 3.1 Monocytes # (Auto) 0.7 0.4 Eosinophils # (Auto) 0.4 0.3 Basophils # (Auto) 0.1 0.1 CBC Comment DIFF FINAL DIFF FINAL Differential Comment Sodium Level 140 142 Potassium Level 3.4 3.7 Chloride Level 103 110 Carbon Dioxide Level 25.8 25.5 Anion Gap 11 7 Blood Urea Nitrogen 8 7 Creatinine 0.92 0.65 Estimat Glomerular Filtration 72 107 Rate Random Glucose 95 83 Calcium Level 8.7 8.0 Magnesium Level 2.1 Total Creatine Kinase 134 Phenytoin (Dilantin) Level 4.0 14.3 Nasal Screen MRSA (PCR) NEGATIVE Total Bilirubin 0.2 Aspartate Amino Transf 8 (AST/SGOT) Alanine Aminotransferase 14 (ALT/SGPT) Alkaline Phosphatase 72 Total Protein 6.2 Albumin 3.1 (Kailee De León) Physical Exam Her right shoulder has a full range of motion and no instability. She does not demonstrate signs of generalized ligamentous laxity. (Sunil Carter MD) Result Diagram: 07/26/166 07/26/16305 Imaging LEFT SHOULDER 2 VIEW: suspected anterior subluxation of humeral head Course see medical chart (Kailee De León) Imaging Review of the x-ray reveals inferior subluxation. The lateral view does not demonstrate dislocation. There are no soft tissue changes. (Sunil Carter MD ) Assessment & Plan Problem List: (1) Instability of left shoulder joint (2) Seizure (3) Anxiety (4) Tobacco abuse Assessment and Plan Findings were discussed and x-rays were reviewed with the patient. She appears to have left shoulder instability. The shoulder is not dislocated at this time. She is to continue non-operative management and follow conservative care. She is to wear arm sling for comfort and ice as necessary. I would recommend physical therapy if she is to stay in the unit and also on an outpatient basis. She can be discharged from orthopedics at this current hospital stay and is to follow up with orthopedics if symptoms persist. Written by Kailee De León (Ashley), acting as scribe for Dr. Carter on at 18:01. (Kailee De León) Assessment and Plan The possibility of surgical management improving her symptomatology should the above fail was discussed. The importance of compliance with a therapy program prior was discussed as well as the possible need for further diagnostic studies if she does come to surgical management. The patient is in agreement with same and all of her questions were answered to her satisfaction. The exam, history, and the medical decision-making described in the above note were completed with the assistance of the mid-level provider. I reviewed and agree with the findings presented. I attest that I had a [id number] encounter with the patient on the same day, and personally performed and documented my assessment and findings in the medical record. (Sunil Carter MD) Kailee De León Jul 26, 2016 18:03 Sunil Carter MD Jul 26, 2016 19:28
--- NOTE | 2016-07-26 18:44 | MG ---
cc: MIRANDA HIRSCH M.D. Lab No: Date: 07/26/2016 Age: 30 Sex: F Race: REQUESTING: Dr. Hirsch. HISTORY: An EEG was obtained on this 30-year-old patient being evaluated for seizures. Possible pseudoseizures. MEDICATIONS: 1. Keppra. 2. Dilantin. 3. Klonopin. DESCRIPTION OF THE RECORD: The patient apparently had an Ativan dose about an hour prior to the EEG. MRI brain normal. The patient did have some sort of episode during photic stimulation with a postictal state afterwards. Initially the study shows alpha rhythms in the 10 to 14 per second range and there is some intermixed theta activity. Some occasional sharp waves with some phase reversal on the left frontal and temporal red region is noted. There is probable occasional sharp discharge in the left frontal central head region. Some of the sharp waves / discharges extend into the right hemisphere as well. The patient is drowsy. One typical with phase reversal is seen on epoch 31 during drowsiness, another one has a sharp discharge noted on the epoch 36. There is awake and asleep intermittently. Photic stimulation shows artifact and then the patient is described as pushing head back and rigid. Initially there is some grunting during photic stimulation. Only while grunting there is some artifactual activity that is a bit difficult to be from a true rhythmic activity. The patient is drowsy. The patient is drowsy after the photic stimulation event. INTERPRETATION: This EEG is interesting and a bit challenging. There are some probable occasional epileptiform features in the left frontal central head region and during photic stimulation, the patient had seizure-like activity clinically with no distinct ictal pattern on the EEG. The EEG findings suggest an epileptiform abnormality, possibly focal on the left and the patient had a seizure-like event during photic stimulation without any distinct evidence of ictal abnormality. Clinical correlation and follow-up EEGs. MD CHRIS Hyde/JOSE /4:42 PM /5:35 PM
[2016-07-26] MEDS: levETIRAcetam 500 MG TAB PO SCH (20:57)
[2016-07-26] MEDS: PHENYTOIN SODIUM 100 MG CAP PO SCH (20:57)
[2016-07-27] VITALS (11 sets, daily range): BP systolic 109–120; BP diastolic 56–73; PULSE 70–85; RESP 16–20; TEMP 97.6–98.3; O2SAT 97–100
[2016-07-27] MEDS: CHLORHEXIDINE GLUCONATE 2 % 1 PACK (2 CLOTHS)(taper/protocol) TOP SCH (04:00)
[2016-07-27] MEDS: SODIUM CHLOR 0.9% 1000 ML INJ 1,000 ML IV SCH ×3 (04:00→20:39)
--- NOTE | 2016-07-27 07:04 | HHI.FF ---
Face to Face Verification Diagnosis: (1) Instability of left shoulder joint (2) Non-compliance (3) Tobacco abuse (4) Seizure (5) Anxiety Occupational Therapy Order: Evaluate and Treat I have seen patient Gabrielle Turner on 07/27/16. My clinical findings support the need for the requested home health care services because: Ltd mobility - disease progression I certify that my clinical findings support that this patient is homebound because: Post-op weakness Betty Valencia MD Jul 27, 2016 07:04
[2016-07-27] MEDS: levETIRAcetam 500 MG TAB PO SCH ×2 (09:31→20:39)
[2016-07-27] MEDS: SODIUM CHLORIDE 0.9% FLUSH 5 ML FLUSH FLUSH SCH ×2 (09:31→20:38)
[2016-07-27] MEDS: clonazePAM 0.5 MG TAB PO SCH ×2 (09:31→20:39)
[2016-07-27] MEDS: PHENYTOIN SODIUM 100 MG CAP PO SCH ×2 (09:31→20:39)
--- NOTE | 2016-07-27 09:46 | HHI.PR ---
Review/Management Daily Summary 07/27 she has pseudoseizures and probably has some seizure as well, eeg yest shows occ probable epileptiform discharges left and probable pseudo seizure during photic might have had another pseudo sz during photic/eeg, i will review very emotional after eeg, obtain psych consult Subjective Subjective Comments Stil having intt seoizures triggered by stress, otherwise no acute events reported No headache Active Medications Current Medications Medications (Trade) Dose Ordered Sig/Bandar Route Start Time Stop Time Status Last Admin (Ativan Inj) 1 mg Q5M PRN IV PUSH 07/25/16 20:00 07/26/16 10:05 Diazepam 5 mg 5 mg Q8H PRN PO 07/25/16 20:00 (NS 1000 ml Inj) 1,000 ml @ 100 mls/hr Q10H IV 07/25/16 20:00 07/27/16 04:00 (NS Flush) 2 ml UNSCH PRN FLUSH 07/25/16 20:00 (NS Flush) 2 ml BID FLUSH 07/25/16 21:00 07/27/16 09:31 (Zofran Inj) 4 mg Q6H PRN IVP 07/25/16 20:00 (Dulcolax Supp) 10 mg DAILY PRN IA 07/25/16 20:00 (Tylenol) 650 mg Q6H PRN PO 07/25/16 20:00 (KlonoPIN) 0.5 mg BID PO 07/25/16 21:00 07/27/16 09:31 Miscellaneous Information Patient in critical care unit? Ass... Q361D XX 07/26/16 01:45 07/26/16 01:45 (Chlorhexidine 2% Cloth) 3 pack DAILY@04 TOP 07/26/16 04:00 07/30/16 04:01 07/27/16 04:00 (Chlorhexidine 2% Cloth) 3 pack UNSCH PRN TOP 07/26/16 01:45 07/31/16 01:30 (Keppra) 1,000 mg Q12HR PO 07/26/16 21:00 07/27/16 09:31 (Dilantin) 300 mg Q12HR PO 07/26/16 21:00 07/27/16 09:31 ([place] 5-325 Mg) 1 tab Q6H PRN PO 07/26/16 23:00 Allergies Allergies Coded Allergies Bactrim (Verified Allergy, Intermediate, hives, 07/25/16) Exam I&O / VS 07/26/16 07/26/16 07/27/16 15:00 23:00 07:00 Intake Total 600 ml 906 ml 1006 ml Output Total 1000 ml 1750 ml 850 ml Balance -400 ml -844 ml 156 ml Intake Oral 600 ml 250 ml 250 ml IV Total 0 ml 656 ml 756 ml Output Urine Total 1000 ml 1750 ml 850 ml Stool Total 0 ml # Bowel Movements 0 0 Vital Signs Date Time Temp Pulse Resp B/P Pulse Ox O2 Delivery O2 Flow Rate FiO2 07/27/16 06:00 83 07/27/16 04:00 70 07/27/16 04:00 98.3 70 17 109/60 98 07/27/16 02:00 82 07/27/16 00:00 79 07/27/16 00:00 98.0 79 16 116/72 97 07/26/16 22:00 82 07/26/16 20:00 98.2 85 18 102/53 96 07/26/16 20:00 85 07/26/16 16:00 97.6 94 20 141/88 94 07/26/16 12:00 98.1 73 20 106/53 96 Objective Micro and Labs Laboratory Tests Test 07/27/16 03:30 Phenytoin (Dilantin) Level 15.1 Anton Hisrch MD Jul 27, 2016 09:45
[2016-07-27] MEDS: ACETAMINOPHEN/HYDROcodone 325 MG/5 MG TAB PO PRN ×2 (11:14→20:40)
--- NOTE | 2016-07-27 12:29 | HHI.PR ---
Subjective Remarks The patient was seen jigger artisan. Patient in nad,. no seizures overnight. I told the patient if she is cleared by neurology can be cleared for DC. Patient started to have another seizure episode, non responding and all, eyes closed. VS stable. Seen by Dr Celis as well neurology. Discussed with Dr Hirsch and thinks she has pseudoseizures as well, and also recommends psych evaluation. Objective Vitals Vital Signs Date Time Temp Pulse Resp B/P Pulse Ox O2 Delivery O2 Flow Rate FiO2 07/27/16 10:00 83 07/27/16 08:00 97.6 85 20 119/56 100 07/27/16 08:00 85 07/27/16 06:00 83 07/27/16 04:00 70 07/27/16 04:00 98. 109/60 98 07/27/16 02:00 82 07/27/16 00:00 79 07/27/16 00:00 98.0 79 16 116/72 97 07/26/16 22:00 82 07/26/16 20:00 98.2 85 18 102/53 96 07/26/16 20:00 85 07/26/16 16:00 97.6 94 20 141/88 94 I/O 07/26/16 07/26/16 07/26/16 07/27/16 07/27/16 07/27/16 07:00 15:00 23:00 07:00 15:00 23:00 Intake Total 240 ml 600 ml 906 ml 1006 ml Output Total 0 ml 1000 ml 1750 ml 850 ml Balance 240 ml -400 ml -844 ml 156 ml Intake Oral 240 ml 600 ml 250 ml 250 ml IV Total 0 ml 0 ml 656 ml 756 ml Output Urine Total 0 ml 1000 ml 1750 ml 850 ml Stool Total 0 ml 0 ml # Bowel Movements 0 0 Result Diagram: 07/26/16 0306 07/26/16 030 Objective Remarks GENERAL: Young female, 30 yo female, somnolent, doesn't follow commands. HEENT: PERRLA, EOMI. No scleral icterus or conjunctival pallor. No lid lag or facial droop. CARDIOVASCULAR: Regular rate and rhythm. No obvious murmurs to auscultation. No chest tenderness to palpation. RESPIRATORY: No obvious rhonchi or wheezing. Clear to auscultation. Breath sounds equal bilaterally. GASTROINTESTINAL: Abdomen soft, non-tender, nondistended. BS normal. MUSCULOSKELETAL: Extremities without clubbing, cyanosis, or edema. No obvious deformities. NEUROLOGICAL: Somnolent. No focal neurologic deficits. Moving both upper and lower extremities spontaneously. A/P Problem List: (1) Instability of left shoulder joint ICD Code: M25.312 Status: Acute (2) Seizure ICD Code: R56.9 Status: Acute (3) Non-compliance ICD Code: Z91.19 Status: Chronic (4) Anxiety ICD Code: F41.9 Status: Chronic (5) Tobacco abuse ICD Code: Z72.0 Status: Chronic Assessment and Plan Seizure: w/ breakthrough seizure, suspect non-compliance w/ medications/ vs pseudoseizures. Recent admit 07/18/16 for same, s/p eval by Dr. Oro, resumed on Dilantin 100mg q8h and added Keppra 500mg q12h. EEG 07/19/[address] Head 07/18/16 w/ no acute findings, MRI Brain 07/19/16 negative, images reviewed by me. Dilantin level subtherapeutic on admission repeat level is normal s/p Dilantin 1gm IV in ER, continue home Dilantin and Keppra, monitor levels. Ativan prn. Seizure Precautions. Seen by neurology appreciate recommendations. Patient has another episode of seizure today 07/27 while I was suggesting and discussing plan of discharge. Discussed with Dr Hirsch neurology thinks patient has pseudiseizure as well. Recommends continuing dilantin, level is therapeutic. Also recommends psychiatry service evaluation of the patient. Consult psychiatry for evaluation Left shoulder pain. Xray reviewed, shows left shoulder subluxation. Consult ortho, appreciate recommendations. Patient to have sling and also recommends OT as OP. cleared the patient for DC. Non-compliance: h/o non-compliance w/ Dilantin in the past due to financial reasons, reports compliance w/ meds, however as above Dilantin subtherapeutic. Anxiety: h/o severe anxiety/PTSD currently [facility]. Resume home Klonopin/Valium Tobacco Abuse: Pt counselled. NicoDerm prn if needed. DVT Prophylaxis: SCD/Teds. CM for d/c planning as needed. Discussed with the patient, nurse, Dr Celis neurology Betty Vaelncia MD Jul 27, 2016 12:29
--- NOTE | 2016-07-27 13:02 | MG ---
cc: PEDRO WOODS M.D. Lab No: [id number] Date: 07/27/2016 Age: 30 Sex: F INDICATION A 30-year-old woman with seizure-like episode, staring off, shaking, anxiety, PTSD. MEDICATIONS Keppra, Dilantin, Klonopin. DESCRIPTION Diffuse alpha and beta rhythms are noted. The recording overall is synchronous and symmetric. The patient falls asleep with some stage II sleep activity which is normal. Photic stimulation is performed without significant posterior driving. The patient is noted to start shaking, holding her breath, rocking her head, but these do not correlate with any seizure activity. She arches her back and shakes. Hyperventilation was performed without significant change in the background. She begins to have some mouth movement, just shows some normal beta rhythms. Body shaking during photic stimulation just shows some 6 Hz diffuse slowing. Grunting is noted. IMPRESSION This is a normal-appearing EEG including during the episodes that she has after hyperventilation and during photic stimulation where she has arching of her back and grunting. It appears these are not real electroencephalographic seizures. Pseudoseizures could be considered. Clinical correlation is needed. If seizure is thought likely, prolonged video EEG monitoring would be recommended. This episode during this EEG did not show any seizure activity. MD DARINEL LeeM/CYNDEE /10:34 AM /11:53 AM
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
[2016-07-28] VITALS: BP 118/58; PULSE 83; RESP 28; TEMP 98.7; O2SAT 96
[2016-07-28 02:00] VITALS: PULSE 76
[2016-07-28] MEDS: CHLORHEXIDINE GLUCONATE 2 % 1 PACK (2 CLOTHS)(taper/protocol) TOP SCH (02:36)
[2016-07-28 04:00] VITALS: BP 122/67; PULSE 85; RESP 22; TEMP 98.6; O2SAT 96
[2016-07-28 06:00] VITALS: PULSE 69
[2016-07-28] MEDS ORDERED: LEVE500 PO (07:12)
[2016-07-28] MEDS ORDERED: DILA100C PO (07:12)
--- NOTE | 2016-07-28 07:14 | HHI.DS ---
Discharge Summary Admission Date Jul 26, 2016 at 00:48 Discharge Date: Jul 28, 2016 Admitting Diagnosis seizure (1) Instability of left shoulder joint ICD Code: M25.312 Diagnosis: Principal (2) Seizure ICD Code: R56.9 Diagnosis: Principal (3) Non-compliance ICD Code: Z91.19 Diagnosis: Secondary (4) Anxiety ICD Code: F41.9 Diagnosis: Secondary (5) Tobacco abuse ICD Code: Z72.0 Diagnosis: Secondary Procedures none Brief History - From Admission This is a 30-year-old female with a PMH of Anxiety, PTSD, Seizure Disorder, Non- compliance and Tobacco Abuse who was brought to the ER by sister secondary to witnessed seizure w/ post-ictal period. 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 Oro w/ Neurology, resumed on Dilantin 100mg po q8h and Keppra 500mg q12h, EEG 07/19/[address] Head 07/18/16 negative and MRI Brain 07/19/16 normal. D/c'd 07/20/16, reportedly compliant w/ medications, however Dilantin level subtherapeutic at 4.0. No recurrent seizure activity while in ER, however pt noted to be somnolent w/ slurred speech indicative of post-ictal state. On arrival, BP 191/ 92, HR 114, O2 sat 100% on RA, Afebrile. Currently BP 107/59, HR 87. WBC 13.9. K+ 3.4. S/p Dilantin 1gm IV x1 in ER. CBC/BMP: 07/26/16 0306 07/26/16 0306 Significant Findings Laboratory Tests Test 07/25/16 07/26/16 17:50 03:06 White Blood Count 13.9 TH/MM3 (4.0-11.0) Neutrophils # (Auto) 8.0 TH/MM3 (1.8-7.7) Potassium Level 3.4 MEQ/L (3.5-5.1) Estimat Glomerular Filtration 72 ML/MIN (>89) Rate Phenytoin (Dilantin) Level 4.0 MCG/ML (10.0-20.0) Chloride Level 110 MEQ/L (98-107) Calcium Level 8.0 MG/DL (8.5-10.1) Aspartate Amino Transf 8 U/L (15-37) (AST/SGOT) Total Protein 6.2 GM/DL (6.4-8.2) Albumin 3.1 GM/DL (3.4-5.0) Imaging Last Impressions Shoulder X-Ray 07/26/16 0000 Signed Impressions: Service Date/Time: Tuesday, July 26, 2016 10:13 - CONCLUSION: Suspected anterior subluxation of the humeral head in relation to the glenoid Adolph Perry MD PE at Discharge GENERAL: Young female, 30 yo female, somnolent, doesn't follow commands. HEENT: PERRLA, EOMI. No scleral icterus or conjunctival pallor. No lid lag or facial droop. CARDIOVASCULAR: Regular rate and rhythm. No obvious murmurs to auscultation. No chest tenderness to palpation. RESPIRATORY: No obvious rhonchi or wheezing. Clear to auscultation. Breath sounds equal bilaterally. GASTROINTESTINAL: Abdomen soft, non-tender, nondistended. BS normal. MUSCULOSKELETAL: Extremities without clubbing, cyanosis, or edema. No obvious deformities. NEUROLOGICAL: Somnolent. No focal neurologic deficits. Moving both upper and lower extremities spontaneously. Pt update on day of discharge Feel smuch better. No seizures overnight. No n/v/d/c. Seen by psychiatry doctor , cleared the patient for DC to follow up with psychiatry as OP. Hospital Course Seizure: w/ breakthrough seizure, suspect non-compliance w/ medications/ vs pseudoseizures. Recent admit 07/18/16 for same, s/p eval by Dr. Oro, resumed on Dilantin 100mg q8h and added Keppra 500mg q12h. EEG 07/19/[address] Head 07/18/16 w/ no acute findings, MRI Brain 07/19/16 negative, images reviewed by me. Dilantin level subtherapeutic on admission repeat level is normal s/p Dilantin 1gm IV in ER, continue home Dilantin and Keppra, monitor levels. Ativan prn. Seizure Precautions. Seen by neurology appreciate recommendations. Patient has another episode of seizure today 07/27 while I was suggesting and discussing plan of discharge. Discussed with Dr Hirsch neurology thinks patient has pseudiseizure as well. Recommends continuing dilantin, level is therapeutic. Also recommends psychiatry service evaluation of the patient. Consult psychiatry for evaluation Left shoulder pain. Xray reviewed, shows left shoulder subluxation. Consult ortho, appreciate recommendations. Patient to have sling and also recommends OT as OP. cleared the patient for DC. Non-compliance: h/o non-compliance w/ Dilantin in the past due to financial reasons, reports compliance w/ meds, however as above Dilantin subtherapeutic. Anxiety: h/o severe anxiety/PTSD currently living [facility]. Resume home Klonopin/Valium Tobacco Abuse: Pt counselled. NicoDerm prn if needed. Ortho recommends OT, cleared patient for DC. Patient improves, was cleared for dc by Dr Hirsch, no seizures on EEGs, continue antiseizure meds per neurology. To follow up as OP. Patient with pseudoseizures seen by psychiatry recommends psychodynamic psychotherapy as OP. Patient was DC in good condition to folow up as Op with pCP and consultants. Pt Condition on Discharge: Stable Discharge Disposition: Disch w/ Home Health Serv Discharge Time: > 30 minutes Discharge Instructions DIET: Follow Instructions for: As Tolerated, No Restrictions Activities you can perform: Weight Bearing as Raghu Activities to Avoid: Lifting/Bending Follow up Referrals: Neurology - 1 Week PCP Follow-up - 3-5 Days New Medications: Levetiracetam (Keppra) 500 Mg Tab 1000 MG PO Q12HR seizure #60 TAB Phenytoin Extended (Dilantin) 100 Mg Cap 300 MG PO Q12HR Seizure Control #60 CAP Continued Medications: Clonazepam (Klonopin) 0.5 Mg Tab 0.5 MG PO BID #60 Ref 0 TAB Diazepam (Diazepam) 5 Mg Tab 5 MG PO TID PRN ANXIETY Ref 0 TAB Discontinued Medications: Levetiracetam (Keppra) 500 Mg Tab 500 MG PO Q12HR Seizure Control #60 TAB Phenytoin Extended (Dilantin) 100 Mg Cap 100 MG PO Q8HR Seizure Control #90 CAP Betty Valencia MD Jul 28, 2016 07:14
[2016-07-28 08:00] VITALS: BP 115/72; PULSE 84; RESP 18; TEMP 98.7; O2SAT 95
[2016-07-28] MEDS: SODIUM CHLOR 0.9% 1000 ML INJ 1,000 ML IV SCH (08:00)
[2016-07-28] MEDS: SODIUM CHLORIDE 0.9% FLUSH 5 ML FLUSH FLUSH SCH (09:00)
[2016-07-28] MEDS: levETIRAcetam 500 MG TAB PO SCH (09:10)
[2016-07-28] MEDS: PHENYTOIN SODIUM 100 MG CAP PO SCH (09:10)
[2016-07-28] MEDS: clonazePAM 0.5 MG TAB PO SCH (09:11)
== END 2016-07-28 12:23 | disposition home or self-care (01) | DRG 101 ==
LOC: NEPE 16:07 → NEDA 19:48 → NEPFCDU 22:12 → OBSVTOIN 07-26 00:48 → HIMW 07-26 01:15
PROVIDERS: ADMIT Hospitalist; ATTEND Hospitalist
DX: G40.919 Epilepsy, unspecified, intractable, without status epilepticus (principal); F41.9 Anxiety disorder, unspecified; Z91.19 Patient's noncompliance with other medical treatment and regimen; F43.10 Post-traumatic stress disorder, unspecified; F17.210 Nicotine dependence, cigarettes, uncomplicated; M25.312 Other instability, left shoulder
CPT/HCPCS: 73030; 80048; 80053; 80185; 82550; 83735; 85025; 87641; 95819; 96372; G0378; J1165; J1953; J2060; J7030; L3908